=== PATIENT | female | born 1980 ===

== ENCOUNTER 2020-11-10 03:40 | Emergency (ER) | payer OTHER, SELFPAY ==
[2020-11-10 03:58] VITALS: BP 103/68; PULSE 55; RESP 20; TEMP 36.7; O2SAT 98
--- NOTE | 2020-11-10 04:12 | ED.GENADULT ---
HPI - General Adult General Chief complaint: Abdominal Pain Stated complaint: Abdominal Pain Source: patient Mode of arrival: ambulatory Limitations: no limitations History of Present Illness HPI narrative: Colleen is a 40F with a PMH of celiac disease, recurrent UT, trich and vaginal yeast infections that presented to the ED with epigastric pain. Pain started at 8-9PM. It is a cramping epigastric pain. It is associated with nausea but no vomiting. She also admits dysuria and noticed some yeast when she was wiping. No diarrhea or constipation. She did have a BM today. No CP, SOB, syncope/near-syncope. Of note about 5 days ago she had fevers, chills and lost her sense of smell/taste. She has an outside covid test pending so she was placed in isolation. Related Data Allergies Allergy/AdvReac Type Severity Reaction Status Date / Time hydrocodone Allergy Unknown Verified 11/10/20 04:12 Latex, Natural Rubber Allergy Unknown Verified 11/10/20 04:12 Review of Systems Constitutional: Constitutional: Denies chills, Denies fever(s) and Denies weakness Eyes: Eyes: Reports no additional eye complaints ENT: Reports system reviewed and no additional complaints, except as documented Cardiovascular: Cardiovascular: Reports no additional cardiovascular complaints Respiratory: Respiratory: Reports no additional respiratory complaints Gastrointestinal: Gastrointestinal: Reports as per HPI Genitourinary: Genitourinary: Reports as per HPI Musculoskeletal: Musculoskeletal: Reports no additional musculoskeletal complaints Integumentary/Breasts: Skin/Breast: Reports system reviewed and no additional complaints, except as docu Neurologic: Reports system reviewed and no additional complaints, except as documented Psychiatric: Psychiatric: Reports no additional psychiatric complaints Endocrine: Endocrine: Reports no additional endocrine complaints Hematologic/Lymphatic: Hematologic/Lymphatic: Reports no additional hematologic/lymphatic complaints Allergic/Immunologic: Allergic/Immunologic: Reports no additional allergic/immunologic complaints Exam Const: General: no acute distress and alert Orientation/consciousness: patient oriented x3 Limitations: No altered mental status HENMT: Head: normal to inspection Other: atraumatic Eyes: Conjunctivae: conjunctivae normal Pupils: Equal, round and reactive pupils present Neck: Neck: normal visual inspection Chest: Chest palpation & inspection: normal inspection of the chest Resp: Effort & Inspection: normal respiratory effort Auscultation: clear to auscultation bilaterally Cardio: Rate: regular rate Rhythm: regular rhythm GI: Other: Epigastric and umbilical TTP. No rebound tenderness or guarding. Normal bowel sounds. : General: Yes no CVA tenderness Other: mild suprapubic tenderness Urinary Catheter: Urinary Catheter: patent and draining Skin: General skin exam: normal color Rashes: no rashes Neuro: General: patient oriented x3 and moves all extremities Extrem: General: normal to inspection Psych: Mental Status: mental status grossly normal Course Course Emergency Course: Colleen was evaluated. Ordered labs, UA, urine trich, diflucan, zofran and a GI cocktail. Labs showed slightly elevated Cr. but were otherwise unremarkable. UA showed only 1+ leuk esterase and no nitrites. It also only had 1+ badcteria despite moderate squamous epithelial cells making UTI unlikely. After the meds her nausea had improved and her abdomen felt better. She was sleeping when I went to check on her. No trich was seen in the urine but the send out test was pending. I discussed this with her and she would like to start treatment before results are back. She was given scripts for protonix and metronidazole then discharged. Vital Signs Vital signs: Vital Signs Temperature 98.0 F 11/10/20 03:58 Pulse Rate 55 L 11/10/20 03:58 Respiratory Rate 20 11/10/20 03:58 Blood Press
[2020-11-10] MEDS: FLUCONAZOLE 150 MG TABLET PO (04:25)
[2020-11-10] MEDS: MAG HYDROX/ALUMINUM HYD/SIMETH 30 ML, PHENobarb/HYOSCY/ATROPINE/SCOP 32.4 MG, LIDOCAINE... PO (04:26)
[2020-11-10] MEDS: ONDANSETRON HCL ODT 4 MG TABLET PO (04:26)
[2020-11-10 04:31] LABS: Basophils Absolute Auto 0.02 K/mm3 (0.00-0.10); Basophils Percent Auto 0.3 % (0.0-1.0); Eosinophils Absolute Auto 0.03 K/mm3 (0.02-0.50); Eosinophils Percent Auto 0.5 % (1.0-6.0); Hematocrit 38.4 % (35.0-49.0); Hemoglobin 12.4 g/dL (12.0-15.0); Immature Granulocyte Absolute 0.02 K/mm3 (0.00-0.00); Immature Granulocyte Percent A 0.3 % (0.0-0.0); Lymphocytes Absolute Auto 1.56 K/mm3 (1.10-4.50); Lymphocytes Percent Auto 25.9 % (18.0-42.0); Mean Corpuscular HGB Conc 32.3 g/dL (32.0-36.0); Mean Corpuscular Volume 92.8 fL (78.0-102.0); Mean Platelet Volume 10.3 fl (9.2-11.8); Monocytes Absolute Auto 0.32 K/mm3 (0.10-0.90); Monocytes Percent Auto 5.3 % (2.0-11.0); Neutrophils Absolute Auto 4.1 K/mm3 (1.7-7.2); Neutrophils Percent Auto 67.7 % (50.0-70.0); Platelet Count Result 230 K/mm3 (150-420); Red Blood Count 4.14 M/mm3 (4.20-5.40); Red Cell Distribution Width 11.9 % (11.6-14.4)
[2020-11-10 04:36] LABS: Add Urine Microscopic? YES; Appearance Urine Cloudy (Clear); Bilirubin Urine Negative (Negative); Blood Urine Negative (Negative); Color Urine Amber (Yellow); Glucose Urine UA Negative (Negative); Ketones Urine Negative (Negative); Leukocyte Esterase Ur 1+ (Negative); Nitrate Urine Negative (Negative); Protein Urine Trace (Negative); Specific Grav Ur >= 1.030 (1.010-1.020); Urobilinogen Urine 0.2 mg/dL (0.2-1.0)
[2020-11-10 04:40] LABS: Bacteria Urine 1+ /hpf; RBC Urine None seen /hpf (0-2); Squamous Epithelial Cell Urine Moderate /hpf (Few)
[2020-11-10 04:42] LABS: INR 0.9; Prothrombin Time 10.3 Seconds (9.50-12.10)
[2020-11-10 04:46] LABS: Alanine Aminotransferase 30 U/L (14-59); Albumin Level 3.4 g/dL (3.4-5.0); Alkaline Phosphatase 68 U/L (46-116); Anion Gap 7 mmol/L (8-16); Aspartate Amino Transferase 24 U/L (15-37); Bilirubin,Total 0.2 mg/dL (0.00-1.00); Blood Urea Nitrogen 12 mg/dL (7-18); Calcium 8.5 mg/dL (8.5-10.1); Carbon Dioxide 26 mmol/L (21-32); Chloride 104 mmol/L (98-108); Estimated Glomerular Filt Rate 54; Glucose 104 mg/dL (70-99); Osmolality Calculated 283 mOsm/kg (285-295); Potassium 4.4 mmol/L (3.5-5.1); Sodium 137 mmol/L (136-145); Total Protein 7.2 g/dL (6.4-8.2)
[2020-11-10 04:48] LABS: CRP < 0.2 mg/dL (0.0-0.9); Lipase 123 U/L (73-393)
[2020-11-10 05:00] LABS: Lactic Acid Reflex 0.7 mmol/L (0.4-2.0)
[2020-11-10 05:01] VITALS: BP 126/76; PULSE 75; RESP 18; O2SAT 99
== END 2020-11-10 05:10 | disposition home or self-care (01) ==
PROVIDERS: Emergency Provider Family Medicine
DX: K29.70 Gastritis, unspecified, without bleeding (principal); A59.01 Trichomonal vulvovaginitis
CPT/HCPCS: 36415; 80053; 81001; 83605; 83690; 85025; 85610; 86140; 87661; 99283; 99284; A9270

== ENCOUNTER 2020-11-13 14:14 | Emergency (ER) | payer OTHER, SELFPAY ==
[2020-11-13 14:25] VITALS: BP 112/71; PULSE 81; RESP 20; TEMP 36.4; O2SAT 96
[2020-11-13 14:36] LABS: Appearance Urine Cloudy (Clear); Bilirubin Urine 1+ (Negative); Color Urine Yellow (Yellow); Glucose Urine UA Negative (Negative); Ketones Urine Trace (Negative); Leukocyte Esterase Ur 3+ (Negative); Nitrate Urine Negative (Negative); Protein Urine 1+ (Negative); Urobilinogen Urine 0.2 mg/dL (0.2-1.0)
--- NOTE | 2020-11-13 14:38 | ED.FEMALEGU ---
HPI - Female Genitourinary General Chief complaint: Urogenital-Female Stated complaint: uti Time Seen by Provider: 11/13/20 14:50 Source: patient Mode of arrival: ambulatory Limitations: no limitations History of Present Illness HPI Narrative: Patient called stating she felt she had a bladder infection. She opted to come in because of dysuria and frequency at home. MD elicited complaint: dysuria, UTI and flank pain Onset (ago): day(s) Quality of pain: cramping Consistency: intermittent Exacerbating factors: urination Related Data Allergies Allergy/AdvReac Type Severity Reaction Status Date / Time hydrocodone Allergy Unknown Verified 11/13/20 14:32 Latex, Natural Rubber Allergy Unknown Verified 11/13/20 14:32 Review of Systems Constitutional: Constitutional: Reports no additional constitutional complaints Eyes: Eyes: Reports no additional eye complaints ENT: Reports system reviewed and no additional complaints, except as documented Cardiovascular: Cardiovascular: Reports no additional cardiovascular complaints Respiratory: Respiratory: Reports no additional respiratory complaints Gastrointestinal: Comments: Crampy abdominal pain, off and on for several days. Genitourinary: Genitourinary: Reports nocturia and Reports flank pain Musculoskeletal: Musculoskeletal: Reports myalgias Integumentary/Breasts: Skin/Breast: Reports system reviewed and no additional complaints, except as docu Neurologic: Reports system reviewed and no additional complaints, except as documented Psychiatric: Psychiatric: Reports no additional psychiatric complaints Endocrine: Endocrine: Reports no additional endocrine complaints Hematologic/Lymphatic: Hematologic/Lymphatic: Reports no additional hematologic/lymphatic complaints Allergic/Immunologic: Allergic/Immunologic: Reports no additional allergic/immunologic complaints PMFSH Surgical History Surgical History (Updated 11/13/20 @ 15:06 by Alex Ortez MD) H/O tubal ligation Family History Family History Other No significant family history Social History Social History (Updated 11/13/20 @ 15:14 by Alex Ortez MD) Social History: , works at home Gender identity (if verbalized by the patient): Female Exam Const: General: no acute distress Nutritional Appearance: well nourished Orientation/consciousness: patient oriented x3 HENMT: Head: normal to inspection General nose exam: Normal external nose present and Normal nares present Teeth and gingiva: dentition normal Eyes: Conjunctivae: conjunctivae normal Neck: Neck: normal visual inspection Lymphatic: no lymphadenopathy noted Chest: Chest palpation & inspection: normal inspection of the chest Resp: Effort & Inspection: normal respiratory effort Auscultation: clear to auscultation bilaterally Cardio: Rate: regular rate Rhythm: regular rhythm GI: GI Palp: Yes Soft to palpation Auscultation: Hyperactive bowel sounds present Other: non tender Skin: General skin exam: normal color Neuro: General: patient oriented x3 and moves all extremities Extrem: General: normal to inspection Psych: Mental Status: mental status grossly normal Thought content: Yes Normal thought content present Course Course Emergency Course: A urine and a urine culture was done. She was given ceftriaxone 1gm IV. We sent her home with a script for bentyl, 20mg tid prn, levaquin 500mg daily, and pyridium 200mg three times a day. We asked her to follow up with her doctor early next week. Vital Signs Vital signs: Vital Signs Temperature 36.4 C 11/13/20 14:25 Pulse Rate 81 11/13/20 14:25 Respiratory Rate 20 11/13/20 14:25 Blood Pressure 112/71 11/13/20 14:25 Pulse Oximetry 96 11/13/20 14:25 Temperature 36.4 C 11/13/20 14:25 Pulse Rate 81 11/13/20 14:25 Respiratory Rate 20 11/13/20 14:25 Blood Pressure 112/71 11/13/20 14:25
[2020-11-13 14:42] LABS: Add Urine Microscopic? YES; Bacteria Urine 1+ /hpf; Blood Urine Trace (Negative); Squamous Epithelial Cell Urine Rare /hpf (Few); WBC Urine >75 /hpf (0-3)
[2020-11-13] MEDS: LIDOCAINE HCL 1% LOCAL INJ 20 ML VIAL (14:52)
[2020-11-13] MEDS: PHENAZOPYRIDINE HCL 100 MG TABLET 200 MG PO (14:52)
[2020-11-13] MEDS: cefTRIAXone 1 GM VIAL IM (14:52)
[2020-11-13] MEDS: DICYCLOMINE HCL 10 MG CAPSULE 20 MG PO (14:52)
[2020-11-13 15:06] VITALS: PULSE 80; RESP 20; O2SAT 96
== END 2020-11-13 15:15 | disposition home or self-care (01) ==
PROVIDERS: Emergency Provider Emergency Medicine
DX: N12 Tubulo-interstitial nephritis, not specified as acute or chronic (principal)
CPT/HCPCS: 81001; 87086; 87088; 87147; 87186; 96372; 99283; A9270; J0696

== ENCOUNTER 2020-11-27 17:32 | Outpatient (NON) | payer BC, SELFPAY | END 2020-11-27 17:33 | PROVIDERS: Visit Provider Nurse Practitioner Family | DX: R30.0 Dysuria (principal) | CPT/HCPCS: 87086; 87491; 87591 ==

== ENCOUNTER 2020-12-27 16:07 | Outpatient (NON) | payer BC, SELFPAY | END 2020-12-27 16:08 | LOC: CHSLAB 16:09 | PROVIDERS: PCP Nurse Practitioner Family; Visit Provider Nurse Practitioner Family | DX: Z12.4 Encounter for screening for malignant neoplasm of cervix (principal); Z13.89 Encounter for screening for other disorder | CPT/HCPCS: 36415; 87480; 87510; 87624; 87660; 88175; G0145 ==

== ENCOUNTER 2021-01-22 15:44 | Outpatient (CLI) | payer BC, SELFPAY ==
[2021-01-22 16:34] LABS: Alanine Aminotransferase 33 U/L (14-59); Albumin Level 3.9 g/dL (3.4-5.0); Alkaline Phosphatase 63 U/L (46-116); Anion Gap 7 mmol/L (8-16); Aspartate Amino Transferase 26 U/L (15-37); Bilirubin,Total 0.7 mg/dL (0.00-1.00); Blood Urea Nitrogen 11 mg/dL (7-18); Calcium 9.4 mg/dL (8.5-10.1); Carbon Dioxide 28 mmol/L (21-32); Chloride 101 mmol/L (98-108); Estimated Glomerular Filt Rate > 60; Glucose 97 mg/dL (70-99); Osmolality Calculated 281 mOsm/kg (285-295); Potassium 3.8 mmol/L (3.5-5.1); Sodium 136 mmol/L (136-145); Total Protein 7.9 g/dL (6.4-8.2)
== END 2021-01-22 15:45 | disposition home or self-care (01) ==
LOC: CHSLAB 15:48
PROVIDERS: PCP Nurse Practitioner Family; Visit Provider Nurse Practitioner Family
DX: R30.0 Dysuria (principal); R73.9 Hyperglycemia, unspecified
CPT/HCPCS: 36415; 80053; 87086

== ENCOUNTER 2021-02-03 14:17 | Outpatient (CLI) | payer BC, SELFPAY ==
[2021-02-03 14:28] LABS: Add Urine Microscopic? YES; Appearance Urine Cloudy (Clear); Bilirubin Urine 1+ (Negative); Blood Urine 2+ (Negative); Color Urine Orange (Yellow); Glucose Urine UA Trace (Negative); Ketones Urine Negative (Negative); Leukocyte Esterase Ur 3+ (Negative); Nitrate Urine Positive (Negative); Protein Urine 2+ (Negative); Specific Grav Ur >= 1.030 (1.010-1.020)
[2021-02-03 14:40] LABS: WBC Urine >75 /hpf (0-3)
[2021-02-03 14:41] LABS: Bacteria Urine 2+ /hpf; Squamous Epithelial Cell Urine Few /hpf (Few)
== END 2021-02-03 14:18 | disposition home or self-care (01) ==
LOC: CHSLAB 14:19
PROVIDERS: PCP Nurse Practitioner Family; Visit Provider Nurse Practitioner Family
DX: R30.0 Dysuria (principal)
CPT/HCPCS: 81001; 87077; 87086; 87088; 87186

== ENCOUNTER 2021-05-06 12:10 | Outpatient (CLI) | payer SELFPAY ==
[2021-05-06 12:20] LABS: Add Urine Microscopic? NO; Appearance Urine Clear (Clear); Bilirubin Urine Negative (Negative); Blood Urine Negative (Negative); Color Urine Light Yellow (Yellow); Glucose Urine UA Negative (Negative); Ketones Urine Negative (Negative); Leukocyte Esterase Ur Negative (Negative); Nitrate Urine Negative (Negative); Protein Urine Negative (Negative); Specific Grav Ur 1.025 (1.010-1.020); Urobilinogen Urine 0.2 mg/dL (0.2-1.0); pH Urine 6.5 (5.0-8.0)
== END 2021-05-06 12:11 | disposition home or self-care (01) ==
LOC: CHSLAB 12:12
PROVIDERS: PCP Nurse Practitioner Family; Visit Provider Nurse Practitioner Family
DX: R30.0 Dysuria (principal)
CPT/HCPCS: 81003; 87086

== ENCOUNTER 2021-05-21 17:29 | Outpatient (NON) | payer SELFPAY | END 2021-05-21 17:30 | disposition home or self-care (01) | LOC: CHSLAB 17:31 | PROVIDERS: PCP Nurse Practitioner Family; Visit Provider Nurse Practitioner Family | DX: N39.0 Urinary tract infection, site not specified (principal); N76.0 Acute vaginitis | CPT/HCPCS: 87086 ==

== ENCOUNTER 2021-08-20 17:38 | Outpatient (CLI) | payer SELFPAY ==
--- NOTE | 2021-08-20 17:50 | ECG_ITS ---
Measurements Intervals [place] Rate: 61 P: 41 WA: 167 QRS: 64 QRSD: 85 T: 50 QT: 396 QTc: 399 Interpretive Statements SINUS RHYTHM NORMAL ECG Electronically Signed On 08-21-2021 8:24:45 CDT by Gee Briceno D.O.
[2021-08-20 17:53] LABS: Basophils Absolute Auto 0.03 K/mm3 (0.00-0.10); Basophils Percent Auto 0.4 % (0.0-1.0); Eosinophils Absolute Auto 0.19 K/mm3 (0.02-0.50); Eosinophils Percent Auto 2.4 % (1.0-6.0); Hematocrit 38.3 % (35.0-49.0); Hemoglobin 12.8 g/dL (12.0-15.0); Immature Granulocyte Absolute 0.02 K/mm3 (0.00-0.00); Immature Granulocyte Percent A 0.3 % (0.0-0.0); Lymphocytes Absolute Auto 1.93 K/mm3 (1.10-4.50); Lymphocytes Percent Auto 24.9 % (18.0-42.0); Mean Corpuscular HGB Conc 33.4 g/dL (32.0-36.0); Mean Corpuscular Hemoglobin 31.1 pg (27.0-31.0); Mean Corpuscular Volume 93.2 fL (78.0-102.0); Mean Platelet Volume 10.6 fl (9.2-11.8); Monocytes Absolute Auto 0.43 K/mm3 (0.10-0.90); Monocytes Percent Auto 5.5 % (2.0-11.0); Neutrophils Absolute Auto 5.2 K/mm3 (1.7-7.2); Neutrophils Percent Auto 66.5 % (50.0-70.0); Platelet Count Result 248 K/mm3 (150-420); Red Blood Count 4.11 M/mm3 (4.20-5.40); Red Cell Distribution Width 11.9 % (11.6-14.4); White Blood Count 7.8 K/mm3 (4.8-10.8)
[2021-08-20 18:27] LABS: Alanine Aminotransferase 25 U/L (14-59); Albumin Level 3.7 g/dL (3.4-5.0); Alkaline Phosphatase 81 U/L (46-116); Anion Gap 8 mmol/L (8-16); Aspartate Amino Transferase 18 U/L (15-37); Bilirubin,Total 0.2 mg/dL (0.00-1.00); Blood Urea Nitrogen 15 mg/dL (7-18); Calcium 8.9 mg/dL (8.5-10.1); Carbon Dioxide 29 mmol/L (21-32); Chloride 104 mmol/L (98-108); Estimated Glomerular Filt Rate > 60; Glucose 89 mg/dL (70-99); Magnesium 1.8 mg/dL (1.8-2.4); Osmolality Calculated 291 mOsm/kg (285-295); Potassium 4.2 mmol/L (3.5-5.1); Sodium 141 mmol/L (136-145); Thyroid Stimulating Hormone 0.67 uIU/mL (0.36-3.74); Total Protein 7.1 g/dL (6.4-8.2)
== END 2021-08-20 17:39 | disposition home or self-care (01) ==
LOC: CHSLAB 17:41
PROVIDERS: PCP Nurse Practitioner Family; Visit Provider Nurse Practitioner Family
DX: R53.83 Other fatigue (principal); R42 Dizziness and giddiness; R07.9 Chest pain, unspecified; E83.42 Hypomagnesemia
CPT/HCPCS: 36415; 80053; 83735; 84443; 85025; 93005

== ENCOUNTER 2021-08-27 18:32 | Outpatient (CLI) | payer SELFPAY ==
[2021-08-27 18:47] LABS: Add Urine Microscopic? YES; Appearance Urine Clear (Clear); Bilirubin Urine Negative (Negative); Blood Urine Negative (Negative); Color Urine Light Yellow (Yellow); Glucose Urine UA Negative (Negative); Ketones Urine Negative (Negative); Leukocyte Esterase Ur 1+ LEU/UL (Negative); Nitrate Urine Negative (Negative); Protein Urine Negative (Negative); Urobilinogen Urine 0.2 mg/dL (0.2-1.0)
[2021-08-27 18:52] LABS: Bacteria Urine 2+ /hpf; RBC Urine 0-2 /hpf (0-2); Squamous Epithelial Cell Urine Rare /hpf (Few); WBC Urine 31-50 /hpf (0-3)
== END 2021-08-27 18:33 | disposition home or self-care (01) ==
LOC: CHSLAB 18:33
PROVIDERS: PCP Family Medicine; Visit Provider Family Medicine
DX: N39.0 Urinary tract infection, site not specified (principal)
CPT/HCPCS: 81001; 87077; 87086; 87088; 87186

== ENCOUNTER 2021-12-15 18:44 | Outpatient (CLI) | payer SELFPAY ==
[2021-12-19 05:37] LABS: FSH 66.5 mIU/mL (***); Prolactin 5.6 ng/mL (***)
[2021-12-21 18:47] LABS: Estrogen 199.7 pg/mL
== END 2021-12-15 18:45 | disposition home or self-care (01) ==
LOC: CHSLAB 18:46
PROVIDERS: PCP Nurse Practitioner Family; Visit Provider Nurse Practitioner Family
DX: R23.2 Flushing (principal); R61 Generalized hyperhidrosis
CPT/HCPCS: 36415; 82672; 83001; 84146; 84443

== ENCOUNTER 2022-02-18 14:00 | Outpatient (CLI) | payer SELFPAY ==
[2022-02-18 15:53] LABS: Influenza A QL RT-PCR Negative (Negative); Influenza B QL RT-PCR Negative (Negative); SARS-CoV-2 RNA PCR Negative (Negative)
== END 2022-02-18 14:01 | disposition home or self-care (01) ==
LOC: CHSLAB 14:02
PROVIDERS: PCP Nurse Practitioner Family; Visit Provider Nurse Practitioner Family
DX: R50.9 Fever, unspecified (principal); Z20.822 Contact with and (suspected) exposure to COVID-19
CPT/HCPCS: 87502; C9803; U0003; U0005

== ENCOUNTER 2022-02-23 14:28 | Outpatient (CLI) | payer SELFPAY ==
[2022-02-23 14:42] LABS: Appearance Urine Clear (Clear); Bilirubin Urine 1+ (Negative); Blood Urine 3+ (Negative); Glucose Urine UA Trace (Negative); Ketones Urine Trace (Negative); Leukocyte Esterase Ur 1+ (Negative); Nitrate Urine Positive (Negative); Protein Urine 3+ (Negative); Specific Grav Ur >= 1.030 (1.010-1.020); pH Urine 6.5 (5.0-8.0)
[2022-02-23 14:54] LABS: Add Urine Microscopic? YES; Color Urine Dark Orange (Yellow); RBC Urine 21-50 /hpf (0-2); WBC Urine 21-30 /hpf (0-3)
[2022-02-23 14:55] LABS: Bacteria Urine 2+ /hpf; Squamous Epithelial Cell Urine Rare /hpf (Few)
== END 2022-02-23 14:29 | disposition home or self-care (01) ==
LOC: CHSLAB 14:30
PROVIDERS: PCP Nurse Practitioner Family; Visit Provider Nurse Practitioner Family
DX: R30.0 Dysuria (principal)
CPT/HCPCS: 81001

== ENCOUNTER 2022-04-22 16:49 | Outpatient (CLI) | payer SELFPAY ==
[2022-04-22 17:25] LABS: Basophils Absolute Auto 0.02 K/mm3 (0.00-0.10); Basophils Percent Auto 0.3 % (0.0-1.0); Eosinophils Absolute Auto 0.15 K/mm3 (0.02-0.50); Eosinophils Percent Auto 2.5 % (1.0-6.0); Hematocrit 37.8 % (35.0-49.0); Hemoglobin 12.3 g/dL (12.0-15.0); Immature Granulocyte Absolute 0.02 K/mm3 (0.00-0.00); Immature Granulocyte Percent A 0.3 % (0.0-0.0); Lymphocytes Absolute Auto 1.84 K/mm3 (1.10-4.50); Lymphocytes Percent Auto 30.8 % (18.0-42.0); Mean Corpuscular HGB Conc 32.5 g/dL (32.0-36.0); Mean Corpuscular Hemoglobin 30.1 pg (27.0-31.0); Mean Corpuscular Volume 92.6 fL (78.0-102.0); Mean Platelet Volume 11.1 fl (9.2-11.8); Monocytes Absolute Auto 0.45 K/mm3 (0.10-0.90); Monocytes Percent Auto 7.5 % (2.0-11.0); Neutrophils Absolute Auto 3.5 K/mm3 (1.7-7.2); Neutrophils Percent Auto 58.6 % (50.0-70.0); Platelet Count Result 235 K/mm3 (150-420); Red Blood Count 4.08 M/mm3 (4.20-5.40); Red Cell Distribution Width 12.1 % (11.6-14.4)
[2022-04-22 17:28] LABS: Add Urine Microscopic? NO; Appearance Urine Clear (Clear); Bilirubin Urine Negative (Negative); Blood Urine Negative (Negative); Color Urine Light Yellow (Yellow); Glucose Urine UA Negative (Negative); Ketones Urine Negative (Negative); Leukocyte Esterase Ur Negative LEU/UL (Negative); Nitrate Urine Negative (Negative); Protein Urine Negative (Negative); Urobilinogen Urine 0.2 mg/dL (0.2-1.0)
[2022-04-22 18:17] LABS: Alanine Aminotransferase 24 U/L (14-59); Albumin Level 3.5 g/dL (3.4-5.0); Alkaline Phosphatase 73 U/L (46-116); Anion Gap 2 mmol/L (8-16); Aspartate Amino Transferase 17 U/L (15-37); Bilirubin,Total 0.2 mg/dL (0.00-1.00); Blood Urea Nitrogen 18 mg/dL (7-18); Calcium 8.8 mg/dL (8.5-10.1); Carbon Dioxide 30 mmol/L (21-32); Chloride 103 mmol/L (98-108); Estimated Glomerular Filt Rate > 60; Free T4 Free Thyroxine 0.78 ng/dL (0.76-1.46); Glucose 73 mg/dL (70-99); Iron 82 ug/dL (50-170); Osmolality Calculated 280 mOsm/kg (285-295); Potassium 4.4 mmol/L (3.5-5.1); Sodium 135 mmol/L (136-145); Thyroid Stimulating Hormone 0.76 uIU/mL (0.36-3.74); Total Protein 6.9 g/dL (6.4-8.2)
[2022-04-22 18:52] LABS: Vitamin B12 651 pg/mL (193-986)
== END 2022-04-22 16:50 | disposition home or self-care (01) ==
LOC: CHSLAB 16:51
PROVIDERS: PCP Nurse Practitioner Family; Visit Provider Nurse Practitioner Family
DX: R42 Dizziness and giddiness (principal)
CPT/HCPCS: 36415; 80053; 81003; 82607; 83540; 83735; 84439; 84443; 85025